=== PATIENT | female | born 2000 | race Two or more races ===

== ENCOUNTER 2021-07-16 10:58 | Emergency (ER) | payer OTHER, MEDICAID ==
[~2021-07-16] VITALS: Ht 162.6 cm; Wt 49.9 kg
[2021-07-16 11:10] VITALS: BP 113/59
[2021-07-16] MEDS ORDERED: prednisoLONE 15 MG/5 ML ORAL UD PO ONE (12:45)
[2021-07-16] MEDS ORDERED: cefTRIAXone SODIUM 500 MG in D5W 5% 12.5 ML IV ONE (12:45)
== END 2021-07-16 15:10 | disposition home or self-care (01) ==
LOC: ER 10:58
DX: B34.9 Viral infection, unspecified (principal); E86.0 Dehydration; Z90.49 Acquired absence of other specified parts of digestive tract; Z20.822 Contact with and (suspected) exposure to COVID-19
CPT/HCPCS: 36415; 71045; 87426; 99284; J0696; J7060